=== PATIENT | female | born 1980 | race Caucasian/White ===

== ENCOUNTER 2018-02-20 05:29 | Day surgery (SDC) | payer OTHER ==
[~2018-02-20] VITALS: Ht 149.9 cm; Wt 65.9 kg
[2018-02-20] VITALS (8 sets, daily range): BP systolic 116–141; BP diastolic 66–100; PULSE 71–108; TEMP 97.8–98.2
[2018-02-20] MEDS ORDERED: PERCOCET 325 MG1 TA2 PO (14:48)
[2018-02-20] MEDS ORDERED: MOTRIN 800800 MG/TAB PO (14:48)
[2018-02-21] VITALS: BP 112/69; PULSE 92; TEMP 98.6
[2018-02-21 04:30] VITALS: BP 122/73; PULSE 95; TEMP 99
[2018-02-21 07:30] VITALS: BP 125/94; PULSE 87; TEMP 98.3
== END 2018-02-21 10:00 | disposition home or self-care (01) ==
LOC: SDCO 05:29 → OB 18:30 → SDCO 02-21 10:00
DX: N94.6 Dysmenorrhea, unspecified (principal); D25.9 Leiomyoma of uterus, unspecified; N73.6 Female pelvic peritoneal adhesions (postinfective); N92.1 Excessive and frequent menstruation with irregular cycle; F41.9 Anxiety disorder, unspecified; Z90.721 Acquired absence of ovaries, unilateral
CPT/HCPCS: OP; A4314; J0690; J1100; J1170; J1885; J2250; J2405; J2704; J2710; J3010; J7120

== ENCOUNTER → 2018-12-24 | Outpatient (CLI) | payer OTHER ==
[~2018-12-24] MED LIST: MOTRIN 800800 MG/TAB PO; PERCOCET 325 MG1 TA2 PO
== END ==
LOC: MC.RAD 15:43
DX: Z12.31 Encounter for screening mammogram for malignant neoplasm of breast (principal); Z00.00 Encounter for general adult medical examination without abnormal findings; Z80.3 Family history of malignant neoplasm of breast